=== PATIENT | female | born 1990 | race Caucasian/White ===

== ENCOUNTER 2025-04-04 09:43 | Outpatient (AMB) | payer OTHER, SELFPAY ==
--- NOTE | 2025-04-04 09:54 | A.OFFPC_ITS ---
Vital Signs 04/04/25 10:31 Height 5 ft 7.32 in Weight 134 lb 6 oz BMI 20.8 BP 100/62 Blood Pressure Location Rt brachial Position Sitting Respiration 16 Pulse 77 Pulse Source Pulse Oximeter Temp 98.1 F Temp Source Oral Pulse Oximetry (%) 99 Oxygen Delivery Method Room Air Intake Visit Reasons: In Home Aide bladder stone Intake Note: follow up for for stones Sr. 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 Abdominal pain: - The patient reports experiencing abdom inal pain since 2023, initially diagnosed as borderline pancreatitis potentially due to gallstones. - The pain is located in the right upper quadrant, described as sharp and persistent for a few hours, with a severity of 6 out of 10. - The pain does not correlate with food intake and occurs intermittently every few days. - Previous imaging suggested the presenc e of gallstones or kidney stones, but recent MRI with contrast was inconclusive. - The patient has no history of alcohol use, which was questioned during a prior hospitalization for pancreatitis. - The patient maintains a heart-healthy diet, influenced by recent training. Health Maintenance - Diet: Patient follows a heart-healthy diet due to recent training. - Pap smear: Scheduled at [facility]. Review of Systems - Gastrointestinal: Reports intermittent sharp abdominal pain in the right upper quadrant, severity 6/10, not related to food intake. - General: Denies alcohol use, smoking, and reports good sleep quality. 10-point ROS reviewed and negative excep t as noted in HPI Past Medical History - Borderline pancreatitis diagnosed in 2 024, potentially due to gallstones. - Previous imaging suggested gallstones or kidney stones. Physical Exam General: Well-appearing, in no acute distress. Vital signs: Within normal limits. HEENT: Normocephalic, atraumatic. PERRLA, EOMI. Conjunctiva clear, sclera anicteric. Oropharynx clear, mucous membranes moist. TMs intact bilaterally. Neck: Supple, no lymphadenopathy, no thyromegaly, no JVD or carotid bruits. Cardiovascular: RRR, normal S1/S2, no murmurs, rubs, or gallops. Peripheral pulses 2+ and symmetric. No edema. Respiratory: Lungs clear to auscultation bilaterally, no wheezes, rales, or rhonchi. Normal effort. Abdomen: Soft, non-tender, non-distended. Normoactive bowel sounds. No hepatosplenomegaly, no masses. MSK: Full range of motion, no joint swelling or deformity. Normal gait. Skin: Warm, dry, intact. No rashes, lesions, or pallor. Neuro: Alert and oriented x3. Cranial nerves II-XII intact. Strength 5/5 throughout. Sensation intact. Reflexes 2+ symmetric. Normal coordination and gait. Psych: Appropriate mood and affect. Normal judgment and insight. Discussion Notes I discussed with the patient the plan to obtain an abdominal ultrasound to evaluate for gallstones or kidney stones, as previous imaging was inconclusive. I also explained the need for comprehensive blood tests, including CBC, CMP, and specific tests for pancreatic enzymes, to further assess her condition. The patient was advised to obtain previous imaging reports for comparison, and I assured her that our office would assist in acquiring these documents. Plan 1. Unspecified abdominal pain R10. 9 - Plan to perform an abdominal ultrasoun d to evaluate for gallstones or kidney stones. - Order comprehensive blood tests includ ing CBC, CMP, lipase, and amylase to assess pancreatic function and rule out other causes. - Advise patient to obtain previous imag ing reports for further evaluation and comparison. Patient Instructions - Schedule an abdominal ultrasound as so on as possible. - Complete the blood tests ordered by [facility] doctor. - Obtain previous imaging reports and br ing them to the next appointment. - Maintain a heart-healthy diet and cont inue avoiding alcohol and smoking. [facility] Medical History (Updated 04/04/25 @ 11:07 by Abraham He MD) Abdominal pain Family History (Updated 04/04/25 @ 10:30 by Mary Grace Hough MA) Father No problems noted. Mother No problems noted. Social History (Updated 04/04/25 @ 10:30 by Mary Grace Hough MA) Housing: Apartment Alcohol intake: current Alcohol intake frequency: does not drink Patient Tobacco Use Status: Never used Tobacco service: Yes Current occupational status: employed Cognitive needs: No Hearing needs: No Vision needs: Yes (rx glasses) Questionnaire PHQ-9 Over the last 2 weeks, how often have you been bothered by any of the following problems? 1. Little interest or pleasure in doing things: not at all 2. Feeling down, depressed, or hopeless: several days 3. Trouble falling or staying asleep, or sleeping too much: not at all 4. Feeling tired or having little energy: several days 5. Poor appetite or overeating: not at all 6. Feeling bad about yourself - or that you are a failure or have let yourself or your family down: not at all 7. Trouble concentrating on things, such as reading the newspaper or watching television: not at all 8. Moving or speaking so slowly that other people could have noticed. Or the opposite - being so fidgety or restless that you have been moving around a lot more than usual: not at all 9. Thoughts that you would be better off or of hurting yourself in some way: not at all Total score: 2 Depression Screening Interpretation: Negative Depression Screening Done: Yes Source: Developed by Drs. Sunil Goins, Odalys Peraza, Cristopher Pérez and colleagues, with an educational jorge from [employer]. Thrive Questionnaire Date Thrive assessed: 04/04/25 I am a: Patient What is your living situation today?: I have a steady place to live Within the past 12 months, did the food you bought not last and you didn't have the money to get more?: Sometimes True Within the past 12 months, did you worry whether your food would run out before you got money to buy more?: Sometimes True Do you have trouble paying for medicines?: No Do you have trouble getting transportation to medical appointments?: No Do you have trouble paying your heating and electricity bill?: Yes Do you have trouble taking care of your child, family member or friend?: No Do you have trouble with day-to-day activities such as bathing, preparing meals, shopping, managing finances, etc.?: No Are you currently unemployed and looking for a job?: Yes Are you interested in more education?: No Please select the resources that you would like help with: Housing/Group Home, Food, Utilities and Job search/training Currently or been in a relationship where the following occur: No concerns reported THRIVE Score: 3 AUDIT C Alcohol Use Questionnaire (AUDIT-C) 1. How often do you have a drink containing alcohol?: Never 3. How often do you have six or more drinks on one occasion?: Never Total Score: 0 LYNDSEY-7 AMB Questionnaire LYNDSEY-7 Date LYNDSEY - 7 assessed: 04/04/25 Feeling nervous, anxious, or on edge: 1 = Several days Not being able to stop or control worryin = Several days Worrying too much about different things: 1 = Several days Trouble relaxin = Several days Being so restless that it is hard to sit still: 1 = Several days Becoming easily annoyed or irritable: 1 = Several days Feeling afraid as if something awful might happen: 0 = Not at all Total LYNDSEY-7 score (0-4 normal; 5-9 mild; 10-14 moderate; 15-21 severe): 6 Source: Developed by Drs. Sunil Goins, Odalys Peraza, Cristopher Pérez and colleagues, with an educational jorge from [employer]. Physical exam (Primary Care) Vital Signs: Last Vital Signs Temp 98.1 F 04/04/25 10:31 Pulse 77 04/04/25 10:31 Resp 16 04/04/25 10:31 BP 100/62 04/04/25 10:31 Pulse Ox 99 04/04/25 10:31 Oxygen Delivery Method Room Air 04/04/25 10:31 BMI result Body Mass Index 20.8 Tobacco/Smoking Status: Tobacco use Status Tobacco use date assessed 04/04/25 04/04/25 09:56 Patient Tobacco Use Status Never used Tobacco 04/04/25 10:30 PHQ-9: PHQ-9 Score PHQ-9: Total score 2 04/04/25 10:33 Depression Screening Interpretation: Negative Thrive Assessment: Date of Thrive Assessment Date Thrive assessed 04/04/25 04/04/25 10:33 Currently or been in a relationship where the following occur: No concerns reported Coding Level of Care Code New Pt Level 3 (26428) Diagnoses Encounter to establish care with new provider Z76.89 Routine lab draw Z01.89 Encounter for screening, unspecified Z13.9 Counseling, unspecified Z71.9 Screening for diabetes mellitus Z13.1 Screening for lipoid disorders Z13.220 Screening for depression Z13.31 Hypertension screen Z13.6 Screening for HIV (human immunodeficiency virus) Z11.4 Right upper quadrant abdominal pain R10.11 Abdominal location: right upper quadrant Assessment & Plan Assessment & Plan (1) Encounter to establish care with new provider: Code(s): Z76.89 - Persons encountering health services in other specified circumstances (2) Routine lab draw: Code(s): Z01.89 - Encounter for other specified special examinations (3) Encounter for screening, unspecified: Code(s): Z13.9 - Encounter for screening, unspecified (4) Counseling, unspecified: Code(s): Z71.9 - Counseling, unspecified (5) Screening for diabetes mellitus: Code(s): Z13.1 - Encounter for screening for diabetes mellitus (6) Screening for lipoid disorders: Code(s): Z13.220 - Encounter for screening for lipoid disorders (7) Screening for depression: Code(s): Z13.31 - Encounter for screening for depression (8) Hypertension screen: Code(s): Z13.6 - Encounter for screening for cardiovascular disorders (9) Screening for HIV (human immunodeficiency virus): Code(s): Z11.4 - Encounter for screening for human immunodeficiency virus [HIV] (10) Abdominal pain: Code(s): R10.9 - Unspecified abdominal pain Category: Medical Qualifiers: Abdominal location: right upper quadrant Qualified Code(s): R10.11 - Right upper quadrant pain Plan Orders: Orders Complete Blood Count Auto Diff Today R10.9 - Unspecified abdominal pain, Z13.9 - Encounter for screening, unspecified, Z76.89 - Persons encountering health services in other specified circumstances Hepatitis B Surface Antigen Today R10.9 - Unspecified abdominal pain, Z13.9 - Encounter for screening, unspecified, Z76.89 - Persons encountering health services in other specified circumstances Hepatitis C Antibody Today R10.9 - Unspecified abdominal pain, Z13.9 - Encounter for screening, unspecified, Z76.89 - Persons encountering health services in other specified circumstances HIV Ab/Ag Today R10.9 - Unspecified abdominal pain, Z13.9 - Encounter for screening, unspecified, Z76.89 - Persons encountering health services in other specified circumstances UA CC w/rflx Micro + Cult Today R10.9 - Unspecified abdominal pain, Z13.9 - Encounter for screening, unspecified, Z76.89 - Persons encountering health services in other specified circumstances Vitamin B12 and Folate Today R10.9 - Unspecified abdominal pain, Z13.9 - Encounter for screening, unspecified, Z76.89 - Persons encountering health services in other specified circumstances Lipase Today R10.9 - Unspecified abdominal pain Amylase Today R10.9 - Unspecified abdominal pain US abdomen complete Today R10.9 - Unspecified abdominal pain US retroperitoneal limited Today R10.9 - Unspecified abdominal pain Comprehensive Met. Panel Today R10.9 - Unspecified abdominal pain, Z13.9 - Encounter for screening, unspecified, Z76.89 - Persons encountering health services in other specified circumstances Hemoglobin A1c Today R10.9 - Unspecified abdominal pain, Z13.9 - Encounter for screening, unspecified, Z76.89 - Persons encountering health services in other specified circumstances Hepatitis B Surface Antibody Today R10.9 - Unspecified abdominal pain, Z13.9 - Encounter for screening, unspecified, Z76.89 - Persons encountering health services in other specified circumstances Lipid Panel Today R10.9 - Unspecified abdominal pain, Z13.9 - Encounter for screening, unspecified, Z76.89 - Persons encountering health services in other specified circumstances Vitamin D 1,25 dihydroxy Today R10.9 - Unspecified abdominal pain, Z13.9 - Encounter for screening, unspecified, Z76.89 - Persons encountering health services in other specified circumstances
[2025-04-04 10:31] VITALS: BP 100/62; PULSE 77; RESP 16; TEMP 36.7; O2SAT 99; BMI 20.8
== END 2025-04-04 11:17 | disposition home or self-care (01) ==
PROVIDERS: PCP Student in an Organized Health Care Education/Training Program; Visit Provider Student in an Organized Health Care Education/Training Program
DX: R10.11 Right upper quadrant pain (principal)

== ENCOUNTER 2025-04-04 09:43 | Outpatient (REF) | payer OTHER, SELFPAY ==
[2025-04-04 18:28] LABS: Appearance Urine Clear; Glucose Urine UA Negative (Negative); MANUAL DIFF FLAG NO; PH 7.5 (5.0-9.0); Specific Gravity - Urine 1.010 (1.005-1.025)
[2025-04-04 18:34] LABS: Hematocrit 39.7 % (37.0-47.0); Hemoglobin 13.2 g/dl (12.0-16.0); Imm Gran Abs Auto 0.01 X10*3/uL (0.00-0.03); Imm Gran Pct Auto 0.2 % (0.0-0.4); Lymphocytes Absolute Auto 2.7 X10*3/uL (1.2-4.9); Mean Corpuscular HGB Conc 33.2 g/dl (31.0-35.0); Mean Corpuscular Hemoglobin 30.1 pg (27.0-33.0); Mean Corpuscular Volume 90.4 fL (80.0-98.0); NRBC Abs Auto 0.000 X10*3/uL (0.0-0.012); NRBC Pct Auto 0.0 /100WBC (0.0-0.2); Platelet Count 231 X10*3/uL (160-400); Red Blood Count 4.39 X10*6/uL (4.20-5.50); White Blood Count 6.6 X10*3/uL (4.8-10.8)
[2025-04-04 18:53] LABS: Hemoglobin A1C 115.0871 umol/L; Total Hemoglobin (HGBA1C) 3465.8239 umol/L
[2025-04-04 19:19] LABS: Alanine Aminotransferase 15 U/L (0-31); Albumin Level 4.7 g/dL (3.5-5.0); Alkaline Phosphatase 46 U/L (39-117); Anion Gap 12 (12-20); Aspartate Amino Transferase 22 U/L (5-31); Blood Urea Nitrogen 7 mg/dL (9-16); Calcium 9.5 mg/dL (8.4-10.2); Carbon Dioxide 25 mmol/L (22-29); Chloride 110 mmol/L (96-108); Cholesterol 126 mg/dL (<200); Estimated Glomerular Filt Rate > 60; Folate 15.1 ng/mL (> or = 4.0); HDL Cholesterol 45 mg/dL (>40); Lipase 36 U/L (8-78); Potassium 4.7 mmol/L (3.3-5.1); Sodium 142 mmol/L (135-145); Total Protein 7.4 g/dL (6.5-8.0); Triglycerides 58 mg/dL (<150); Vitamin B12 432 pg/mL (200-900)
[2025-04-04 19:41] LABS: Amylase 53 U/L (28-100)
[2025-04-05 06:16] LABS: HBS Num1 59.67 mIU/mL (0-7.99); HBsAGNum1 0.46 S/CO (0.00-0.99); HIV Num 1 0.04 S/CO (0.00-0.99); Hepatitis B Surface Antigen Negative (Negative); ~HepC Num1 0.15 S/CO (0.00-0.79); ~Hepatitis B Surface Antibody REACTIVE (Nonreactive); ~Hepatitis C Antibody Nonreactive (Nonreactive)
[2025-04-10 08:33] LABS: VITAMIN D (1,25 OH) D3 62 pg/mL; Vit D (1,25-Dihydroxy) Total 62 pg/mL (18-72); Vitamin D (1,25 OH) D2 <8 pg/mL
== END 2025-04-04 09:44 | disposition home or self-care (01) ==
LOC: HO.HKASLDS 09:43
PROVIDERS: PCP Student in an Organized Health Care Education/Training Program; Visit Provider Student in an Organized Health Care Education/Training Program
DX: Z11.59 Encounter for screening for other viral diseases (principal); Z13.1 Encounter for screening for diabetes mellitus; Z11.4 Encounter for screening for human immunodeficiency virus [HIV]; I10 Essential (primary) hypertension; R10.9 Unspecified abdominal pain; Z76.89 Persons encountering health services in other specified circumstances
CPT/HCPCS: 36415; 80053; 80061; 81003; 82150; 82607; 82652; 82746; 83036; 83690; 85025; 86706; 86803; 87340; 87389

== ENCOUNTER 2025-04-05 09:20 | Outpatient (REF) | payer OTHER, SELFPAY ==
--- NOTE | ~2025-04-05 | US_ITS ---
CLINICAL HISTORY: R10.11 - Right upper quadrant pain --- Additional Notes or Special Instructions: Rule out kidney stones US abdomen complete Comparison: None provided Findings: The visualized pancreas is normal. The aorta and inferior vena cava are normal caliber. The liver is normal in size and echotexture. There is no intrahepatic bile duct dilatation. The common duct is 3 mm in diameter. The gallbladder is normal in size. Multiple gallstones are present. There is no gallbladder wall thickening or pericholecystic fluid. The main portal vein is antegrade. The right kidney is 11.3 cm in length. The left kidney is 11.7 cm in length. The spleen is normal. IMPRESSION: 1. Cholelithiasis without sonographic findings of acute cholecystitis. This document has been electronically signed by: Glendy Calero on 04/06/2025 09:01:04
== END 2025-04-05 09:21 | disposition home or self-care (01) ==
LOC: HO.US 09:20
PROVIDERS: PCP Student in an Organized Health Care Education/Training Program; Visit Provider Student in an Organized Health Care Education/Training Program
DX: R10.9 Unspecified abdominal pain (principal)
CPT/HCPCS: 76700

== ENCOUNTER → 2025-04-05 09:23 | Outpatient (BNV) | payer OTHER, SELFPAY | PROVIDERS: PCP Student in an Organized Health Care Education/Training Program; Visit Provider Radiology Vascular & Interventional Radiology | DX: K80.20 Calculus of gallbladder without cholecystitis without obstruction (principal) | CPT/HCPCS: 76700 ==

== ENCOUNTER 2025-04-18 10:24 | Outpatient (AMB) | payer OTHER, SELFPAY ==
--- NOTE | 2025-04-18 10:31 | MHC.PC.OV ---
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 Cholelithiasis: - Gallstones were identified on a recent sonogram, which may be causing the patient's symptoms. - The patient has been referred to a general surgeon to discuss potential surgical intervention, such as cholecystectomy. - Laboratory tests were normal, including white blood cells, red blood cells, hemoglobin, and STI screen. Review of Systems 10-point ROS reviewed and negative except as noted in HPI Physical Exam General: Well-appearing, in no acute distress. Vital signs: Within normal limits. HEENT: Normocephalic, atraumatic. PERRLA, EOMI. Conjunctiva clear, sclera anicteric. Oropharynx clear, mucous membranes moist. TMs intact bilaterally. Neck: Supple, no lymphadenopathy, no thyromegaly, no JVD or carotid bruits. Cardiovascular: RRR, normal S1/S2, no murmurs, rubs, or gallops. Peripheral pulses 2+ and symmetric. No edema. Respiratory: Lungs clear to auscultation bilaterally, no wheezes, rales, or rhonchi. Normal effort. Abdomen: Soft, non-tender, non-distended. Normoactive bowel sounds. No hepatosplenomegaly, no masses. Presence of gallstones noted. MSK: Full range of motion, no joint swelling or deformity. Normal gait. Skin: Warm, dry, intact. No rashes, lesions, or pallor. Neuro: Alert and oriented x3. Cranial nerves II-XII intact. Strength 5/5 throughout. Sensation intact. Reflexes 2+ symmetric. Normal coordination and gait. Psych: Appropriate mood and affect. Normal judgment and insight. Plan 1. Cholelithiasis - Referral to a general surgeon for evaluation and discussion of potential cholecystectomy. - Follow-up with the primary care physician after surgical consultation to determine further management steps. Discussion Notes I discussed with the patient the presence of gallstones as identified on the sonogram and the potential need for surgical intervention. I explained that a referral to a general surgeon would be made to evaluate the necessity of a cholecystectomy. We also reviewed her laboratory results, which were normal, and I advised her to follow up after the surgical consultation to discuss further management. Patient was informed and verbally consented to the use of an ambient scribe for clinic note documentation during this visit. Patient Instructions - Follow up with the general surgeon as scheduled to discuss treatment options for gallstones. - Return to the primary care physician after the surgical consultation for further evaluation and management. [facility] Medical History (Updated 04/18/25 @ 11:04 by Abraham He MD) Cholelithiasis Abdominal pain Family History (Updated 04/04/25 @ 10:30 by Mary Grace Hough MA) Father No problems noted. Mother No problems noted. Social History (Updated 04/04/25 @ 10:30 by Mary Grace Hough MA) Housing: Apartment Alcohol intake: current Alcohol intake frequency: does not drink Patient Tobacco Use Status: Never used Tobacco service: Yes Current occupational status: employed Cognitive needs: No Hearing needs: No Vision needs: Yes (rx glasses) Questionnaire Thrive Questionnaire Date Thrive assessed: 03/28/25 I am a: Patient What is your living situation today?: I have a steady place to live Within the past 12 months, did the food you bought not last and you didn't have the money to get more?: Sometimes True Within the past 12 months, did you worry whether your food would run out before you got money to buy more?: Sometimes True Do you have trouble paying for medicines?: No Do you have trouble getting transportation to medical appointments?: No Do you have trouble paying your heating and electricity bill?: Yes Do you have trouble taking care of your child, family member or friend?: No Do you have trouble with day-to-day activities such as bathing, preparing meals, shopping, managing finances, etc.?: No Are you currently unemployed and looking for a job?: Yes Are you interested in more education?: No Currently or been in a relationship where the following occur: No concerns reported THRIVE Score: 3 LYNDSEY-7 AMB Questionnaire LYNDSEY-7 Date LYNDSEY - 7 assessed: 04/04/25 Source: Developed by Drs. Sunil Goins, Odalys Peraza, Cristopher Pérez and colleagues, with an educational jorge from [employer]. Physical exam (Primary Care) Vital Signs: Last Vital Signs Temp 98.8 F 04/18/25 10:32 Pulse 76 04/18/25 10:32 Resp 16 04/18/25 10:32 BP 109/62 04/18/25 10:32 Pulse Ox 100 04/18/25 10:32 Oxygen Delivery Method Room Air 04/18/25 10:32 BMI result Body Mass Index 20.7 Tobacco/Smoking Status: Tobacco use Status Tobacco use date assessed 04/04/25 04/18/25 10:33 Patient Tobacco Use Status Never used Tobacco 04/18/25 10:33 Thrive Assessment: Date of Thrive Assessment Date Thrive assessed 03/28/25 04/18/25 10:33 Currently or been in a relationship where the following occur: No concerns reported Coding Level of Care Code Est Pt Level 2 (65146) Diagnoses Encounter to discuss test results Z71.2 Cholelithiasis K80.20 Assessment & Plan Assessment & Plan (1) Encounter to discuss test results: Code(s): Z71.2 - Person consulting for explanation of examination or test findings (2) Cholelithiasis: Code(s): K80.20 - Calculus of gallbladder without cholecystitis without obstruction Category: Medical Plan Orders: Referrals General Surgery Referral K80.20 - Calculus of gallbladder without cholecystitis without obstruction
[2025-04-18 10:32] VITALS: BP 109/62; PULSE 76; RESP 16; TEMP 37.1; O2SAT 100; BMI 20.7
== END 2025-04-18 11:06 | disposition home or self-care (01) ==
LOC: HO.HMCFMS 10:25
PROVIDERS: PCP Student in an Organized Health Care Education/Training Program; Visit Provider Student in an Organized Health Care Education/Training Program
DX: K80.20 Calculus of gallbladder without cholecystitis without obstruction (principal)

== ENCOUNTER → 2025-04-18 10:24 | Outpatient (BNVA) | payer OTHER, SELFPAY | PROVIDERS: PCP Student in an Organized Health Care Education/Training Program; Visit Provider Student in an Organized Health Care Education/Training Program | DX: Z71.2 Person consulting for explanation of examination or test findings (principal); K80.20 Calculus of gallbladder without cholecystitis without obstruction | CPT/HCPCS: 99212 ==

== ENCOUNTER 2025-05-21 12:40 | Outpatient (AMB) | payer OTHER, SELFPAY ==
--- NOTE | 2025-05-21 13:01 | A.OFFVIS_ITS ---
Vital Signs 05/21/25 13:18 Height 5 ft 5 in Weight 130 lb BMI 21.6 BP 104/60 Blood Pressure Location Lt brachial Position Sitting Pulse 69 Intake Visit Reasons: gallbladder problems Intake Note: Patient is seen in office for for evaluation of the gallbladder. 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 The pain has been occurring intermittently for the past 2-3 years and seems to be increasing in frequency and severity. The pain is felt mainly in the right upper quadrant without radiation in his described as sharp and localized. The pain is not associated with nausea, vomiting, or bowel changes. She has a prior history of section due to a breech presentation with no complications. Workup with ultrasound of the abdomen revealed cholelithiasis without sonographic findings of acute cholecystitis. Multiple gallstones were noted within the gallbladder. She presents today to discuss possible cholecystectomy. [facility] Medical History Cholelithiasis Abdominal pain Surgical History Hx of section Family History Father No problems noted. Mother No problems noted. Social History Housing: Apartment Alcohol intake: current Alcohol intake frequency: does not drink Patient Tobacco Use Status: Never used Tobacco service: Yes Current occupational status: employed Cognitive needs: No Hearing needs: No Vision needs: Yes (rx glasses) Review of Systems Const All systems reviewed & are unremarkable except as noted in HPI and below Physical Exam Vital Signs: Last Vital Signs Pulse 69 05/21/25 13:18 BP 104/60 05/21/25 13:18 BMI result Body Mass Index 21.6 Const General: cooperative and no acute distress Nutritional Appearance: well nourished Orientation/consciousness: patient oriented x3 Limitations: no limitations HEENT Head: Yes normocephalic and Yes atraumatic Ears: hearing grossly normal bilaterally Resp Effort & Inspection: normal respiratory effort, no audible wheezes, no cough and no respiratory distress Cardio Jugular venous distension: no JVD GI Other: Negative Salas sign Inspection: Yes normal to inspection Palpation (GI): Soft to palpation, nontender, no guarding, not rigid and No hepatosplenomegaly present Percussion: Yes normal to percussion Auscultation: normal bowel sounds Skin Other: Warm, dry, no rash Neuro General: patient oriented x3 Extrem General: Yes no clubbing, cyanosis or edema Assessment & Plan Assessment & Plan (1) Biliary colic: Code(s): K80.50 - Calculus of bile duct without cholangitis or cholecystitis without obstruction Category: Medical (2) Cholelithiasis: Code(s): K80.20 - Calculus of gallbladder without cholecystitis without obstruction Category: Medical Qualifiers: Cholelithiasis location: gallbladder Cholecystitis presence: without cholecystitis Biliary obstruction: without biliary obstruction Qualified Code(s): K80.20 - Calculus of gallbladder without cholecystitis without obstruction Plan 34-year-old female patient presenting with complaints of abdominal pain in the right upper quadrant felt intermittently over the past 2-3 years found on workup to have multiple gallstones within the gallbladder. Examination today reveals her abdomen to be soft and nondistended with a negative Salas sign. Ultrasound of the abdomen reveals multiple gallstones within the gallbladder without evidence of acute cholecystitis. We discussed laparoscopic or possible open cholecystectomy as an option. After discussion of the procedure, risks, and alternatives, she consents to a laparoscopic or possible open cholecystectomy. She will be scheduled as a short-stay surgery at her earliest convenience. Coding Level of Care Code New Pt Level 4 (91414) Diagnoses Biliary colic K80.50 Calculus of gallbladder without cholecystitis without obstruction K80.20 Cholelithiasis location: gallbladder Cholecystitis presence: without cholecystitis Biliary obstruction: without biliary obstruction
[2025-05-21 13:18] VITALS: BP 104/60; PULSE 69; BMI 21.6
== END 2025-05-21 13:29 | disposition home or self-care (01) ==
LOC: HO.HGS 12:40
PROVIDERS: PCP Student in an Organized Health Care Education/Training Program; Visit Provider Surgery
DX: K80.50 Calculus of bile duct without cholangitis or cholecystitis without obstruction (principal); K80.20 Calculus of gallbladder without cholecystitis without obstruction
CPT/HCPCS: 99204

== ENCOUNTER → 2025-05-21 12:40 | Outpatient (BNVA) | payer OTHER, SELFPAY | PROVIDERS: PCP Student in an Organized Health Care Education/Training Program; Visit Provider Surgery | DX: R10.11 Right upper quadrant pain (principal); K80.20 Calculus of gallbladder without cholecystitis without obstruction; K80.50 Calculus of bile duct without cholangitis or cholecystitis without obstruction | CPT/HCPCS: 99202 ==

== ENCOUNTER 2025-05-25 05:45 | Day surgery (SDC) | payer OTHER, SELFPAY ==
--- NOTE | 2025-05-23 09:44 | HO.ANESPROP2 ---
Documented by User: Ely Flaherty NP 05/23/25 09:45 HPI - Anesthesia Eval Consult details Narrative: 34yo F for Cholecystectomy Laparoscopic,possible open PMFSH Active Problems Active Problems: All Active Problems Biliary colic (Acute) Cholelithiasis (Acute) Abdominal pain (Acute) Past Medical History Medical History Cholelithiasis Abdominal pain Family History Family History Father No problems noted. Mother No problems noted. Surgical History Surgical History Hx of section Social History Social History Housing: Apartment Alcohol intake: current Alcohol intake frequency: does not drink Patient Tobacco Use Status: Never used Tobacco Use of substances other than those prescribed or required for medical reasons: No Have you been hit, kicked, punched, or otherwise hurt by someone within the past year? If so, by whom?: No Are you DNR?: No Advance Directives: No Advance Directives Information Provided: Yes Patient : No (currently has period; urine preg sent to lab to confirm) service: Yes Current occupational status: employed Cognitive needs: No Hearing needs: No Vision needs: Yes (rx glasses) Meds Allergies Allergy/AdvReac Type Severity Reaction Status Date / Time amoxicillin Allergy Mild Rash Verified 05/25/25 06:06 Home Medications ?Medication ?Instructions ?Recorded ?Confirmed ?Last Taken ?Type medroxyprogesterone 150 mg/mL 150 mg IM [id number] 04/04/25 05/25/25 03/23/25 History intramuscular suspension (Depo-Provera) Exam Pertinent Lab Results Pertinent Lab Results: Laboratory Tests 04/04/25 11:48 WBC 6.6 Hgb 13.2 Hct 39.7 Plt Count 231 Sodium 142 Potassium 4.7 Chloride 110 H Carbon Dioxide 25 BUN 7 L Creatinine 0.73 Assessment and Plan Assessment Anesthesia Assessment: Chart Reviewed Documented by User: Ayana Gordon MD 05/25/25 07:53 PMFSH Past Medical History Medical History Cholelithiasis Abdominal pain Family History Family History Father No problems noted. Mother No problems noted. Family history of problems with anesthesia: No Surgical History Surgical History Hx of section History of Problems with Anesthesia: No Social History Social History Housing: Apartment Alcohol intake: current Alcohol intake frequency: does not drink Patient Tobacco Use Status: Never used Tobacco Use of substances other than those prescribed or required for medical reasons: No Have you been hit, kicked, punched, or otherwise hurt by someone within the past year? If so, by whom?: No Are you DNR?: No Advance Directives: No Advance Directives Information Provided: Yes Patient : No (currently has period; urine preg sent to lab to confirm) service: Yes Current occupational status: employed Cognitive needs: No Hearing needs: No Vision needs: Yes (rx glasses) Meds Allergies Allergy/AdvReac Type Severity Reaction Status Date / Time amoxicillin Allergy Mild Rash Verified 05/25/25 06:06 Home Medications ?Medication ?Instructions ?Recorded ?Confirmed ?Last Taken ?Type medroxyprogesterone 150 mg/mL 150 mg IM [id number] 04/04/25 05/25/25 03/23/25 History intramuscular suspension (Depo-Provera) Exam Airway Mallampati Class: II TM Dist: >3cm Neck ROM: Full Heart: rrr Lungs: cta Assessment and Plan Assessment Anesthesia Assessment: Anesthesia Plan Discussed Final Anesthetic Review Family History of Problems with Anesthesia: No History of Problems with Anesthesia: No NPO: Yes ASA Class: I Final Preanesthetic Review: No Changes in Pt Med Stat, Meds/Allgs Chart Reviewed, Consent Obtained/Reviewed and Anes Risks/Benef Reviewed Patient Risk: Low Procedure Risk: Intermediate Anesthetic Plan Anesthetic Plan: GA and Agree w/ Assess. and Plan Disposition: Standard PACU
[2025-05-25] VITALS (11 sets, daily range): BP systolic 90–107; BP diastolic 49–60; PULSE 55–93; RESP 12–16; TEMP 36.3–37.3; O2SAT 95–100; BMI 21.9
[2025-05-25] MEDS: Lactated Ringers 1,000 ML 100 ML IVCONT (06:23)
[2025-05-25 06:40] LABS: UPreg QC Valid YES
--- NOTE | 2025-05-25 07:11 | MHC.SHP ---
Pre-Procedural Eval Section A - 24 Hr Update-Section A only Date of Service: 05/25/25 The patient is an INPATIENT: No Changes since office visit: Yes Patient answered all questions; No Cold of Flu in the past 2 weeks, No New Medical Problems and No Changes in Medication The patient has been examined within 24 hours of the surgical procedure. The History & Physical has been completed within 30 days and I have reviewed it.: Yes Section B - Complete if H&P > 30 days Chief Complaint: Calculus of bile duct without cholangitis or dorita Allergies: Allergies Allergy/AdvReac Type Severity Reaction Status Date / Time amoxicillin Allergy Mild Rash Verified 05/25/25 06:06 Plan Diagnosis/Plan: Unchanged I have reviewed the history and physical and performed a pertinent physical examination on my patient. No changes have occurred unless specified. Time Spent With Patient Time: Total time managing care of this patient today ____ minutes.
--- NOTE | 2025-05-25 07:42 | P.OP_ITS ---
Operative Note Operative Note Date of Service: 05/25/25 Narrative: Preoperative diagnosis: Biliary colic, gallstones Postoperative diagnosis: Same Procedure: Laparoscopic cholecystectomy Surgeon: Moe Elizabeth MD Drying Unit Felting Machine Operator: Yaquelin Ovalle PA-C Anesthesia: General endotracheal Indications for procedure: 34-year-old female patient presenting with abdominal pain in the right upper quadrant found to have gallstones in the gallbladder. Pain was sharp and radiating into the back without nausea or vomiting. She presents today for laparoscopic cholecystectomy. Operative findings: Normal-appearing gallbladder with multiple gallstones within the gallbladder. Specimen: gallbladder Estimated blood loss: 2 mL Complications: None Procedure details: Patient was brought to the OR and placed in a supine position. After administering general anesthesia the patient's abdomen was prepped with ChloraPrep and draped in a sterile fashion. A surgical time-out was called the consent confirmed. Patient received preoperative antibiotics and Venodyne boots were in place. Local anesthesia consisting of 0.5% Sensorcaine without epinephrine was infiltrated in a periumbilical region. A 5 mm incision was made above the umbilicus in a transverse fashion. The Veress needle was then inserted while elevating abdominal cavity with towel clips. After positive drop test the abdomen was insufflated to a pressure of 15 mm of mercury. The Veress needle was then removed and a 5 mm trocar inserted. The camera was inserted in the abdomen explored. A 12 mm trocar was then placed in the epigastrium. Two 5 mm trocars placed in the right upper quadrant by the commercial escrow assistant. The patient was placed in reverse Trendelenburg positioning and rotated to the left. The gallbladder was grasped with the fundus and retracted cephalad by the commercial escrow assistant. The infundibulum was then grasped and retracted away from the liver bed, also by the commercial escrow assistant. The Dolphin dissected was then used by the surgeon to dissect the peritoneum off the infundibulum to reveal the junction with the cystic duct. Cystic artery was noted slightly medial and posterior to the cystic duct. After obtaining a critical view the cystic duct was doubly clipped and divided. The cystic artery was then doubly clipped and divided. The gallbladder was then dissected off the liver bed using electrocautery with an L hook. Hemostasis was assured all times using the electrocautery. When the gallbladder is completely dissected off the liver bed was placed in an Endo-Catch bag and brought out through the epigastric incision. The gallbladder was sent to pathology for further examination. The abdomen was then re-examined. The liver bed was irrigated and suctioned dry. No bleeding or bile leak could be identified. CO2 was then evacuated and all trocars removed. Fascia was closed at the epigastric incision using a [id number] 0 Polysorb suture. Skin was closed in all incisions using a subcuticular 4 0 Polysorb suture by both the surgeon and commercial escrow assistant. Sterile dressings consisting of Steri-Strips, 2 x 2 gauze, and Tegaderm were then applied. The patient tolerated the procedure well. Sponge instrument and needle counts reported as correct. The patient was transferred to PACU in stable condition.
== END 2025-05-25 10:15 | disposition home or self-care (01) ==
PROVIDERS: PCP Student in an Organized Health Care Education/Training Program; Visit Provider Surgery
PROC: 0FT44ZZ Resection of Gallbladder, Percutaneous Endoscopic Approach (ICD-10-PCS; CPT 47562; principal; 2025-05-25 07:30)
DX: K80.10 Calculus of gallbladder with chronic cholecystitis without obstruction (principal); Z79.899 Other long term (current) drug therapy; Z88.1 Allergy status to other antibiotic agents
CPT/HCPCS: 47562; 81025; 88304; J1100; J1171; J1630; J1836; J2003; J2250; J2371; J2405; J2704; J3010

== ENCOUNTER → 2025-05-25 05:45 | Outpatient (BNV) | payer OTHER, SELFPAY | PROVIDERS: PCP Student in an Organized Health Care Education/Training Program; Visit Provider Surgery | DX: K80.00 Calculus of gallbladder with acute cholecystitis without obstruction (principal) | CPT/HCPCS: 47562 ==

== ENCOUNTER 2025-06-08 10:26 | Outpatient (AMB) | payer OTHER, SELFPAY ==
--- NOTE | 2025-06-08 10:32 | MHC.OFFVIS ---
Vital Signs 06/08/25 10:34 Height 5 ft 5 in Weight 134 lb BMI 22.3 BP 111/58 L Blood Pressure Location Lt brachial Position Sitting Pulse 85 Intake Visit Reasons: S/P lap dorita Intake Note: Patient is seen in office for post op assessment post laparoscopic cholecystectomy. Pt c/o: per pt feels a lump on the upper incision above the belly button, denies redness, discharge or other concerns surgery:05/25/25 (THANG) Forming Roll Operator Required: No Accompanied by: Self / Same As Patient Allergies amoxicillin Allergy (Mild, Verified 06/08/25 10:39) Rash HPI HPI S/P lap dorita: Details: 34 year old female here for wound check and follow up after undergoing laparoscopic cholecystectomy on 05/25/[address] Elizabeth for biliary colic. She tolerated the procedure well. She took oxycodone for the first week with good control of her incisional pain. She did have some constipation but took the stool softener which helped and she is now going regularly. She currently denies pain at rest but reports some remaining discomfort at epigastric incision with a lot of movement. She is in the [employer] and was running last weekend and doing core work with increasing discomfort at her incision site. She is eating normally. She has no fevers, chills, nausea, vomiting, diarrhea. She notes some hardness at her epigastric incision site but has no other concerns. [facility] Medical History Cholelithiasis Abdominal pain Surgical History (Updated 06/08/25 @ 10:58 by aYquelin Ovalle PA-C) Hx laparoscopic cholecystectomy (05/25/25) Hx of section Family History Father No problems noted. Mother No problems noted. Social History Housing: Apartment Alcohol intake: current Alcohol intake frequency: does not drink Patient Tobacco Use Status: Never used Tobacco service: Yes Current occupational status: employed Cognitive needs: No Hearing needs: No Vision needs: Yes (rx glasses) Review of Systems Const All systems reviewed & are unremarkable except as noted in HPI and below Physical Exam Vital Signs: Last Vital Signs Pulse 85 06/08/25 10:34 BP 111/58 L 06/08/25 10:34 BMI result Body Mass Index 22.3 Const General: comfortable, no acute distress, well developed and alert Orientation/consciousness: patient oriented x3 Resp Effort & Inspection: normal respiratory effort and able to speak in complete sentences GI Other: soft, nondistended incisions all well healed, no surrounding erythema or edema, epigastric site with mild surrounding induration and mild tenderness Palpation (GI): no guarding and not rigid Percussion: Yes normal to percussion Skin General skin exam: no rashes or lesions noted and no jaundice Neuro General: patient oriented x3 and moves all extremities Results Reviewed Results Reviewed: Gallbladder, cholecystectomy: Chronic cholecystitis with focal metaplastic changes and cholelithiasis Assessment & Plan Assessment & Plan (1) Hx laparoscopic cholecystectomy: Onset Date: 05/25/25 Comment: Moe Elizabeth MD Code(s): Z90.49 - Acquired absence of other specified parts of digestive tract Category: Surgical Plan 34 year old female s/p laparoscopic cholecystectomy on 05/25/25 for biliary colic. She tolerated the procedure well and is doing well post operatively. Her abdomen is benign with clean appearing incisions without evidence of infection. 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 She can return as needed if she develops concerns. Coding Level of Care Code Global (10033) Diagnoses Hx laparoscopic cholecystectomy Z90.49
[2025-06-08 10:34] VITALS: BP 111/58; PULSE 85; BMI 22.3
== END 2025-06-08 10:52 | disposition home or self-care (01) ==
LOC: HO.HGS 10:27
PROVIDERS: PCP Student in an Organized Health Care Education/Training Program; Visit Provider Physician Assistant Surgical
DX: Z90.49 Acquired absence of other specified parts of digestive tract (principal)
CPT/HCPCS: 99024

== ENCOUNTER → 2025-06-08 10:26 | Outpatient (BNVA) | payer OTHER, SELFPAY | PROVIDERS: PCP Student in an Organized Health Care Education/Training Program; Visit Provider Physician Assistant Surgical | DX: Z90.49 Acquired absence of other specified parts of digestive tract (principal); K80.50 Calculus of bile duct without cholangitis or cholecystitis without obstruction; Z91.85 Personal history of military service | CPT/HCPCS: 99212 ==